=== PATIENT | female | born 1950 | race African-American/Black ===

== ENCOUNTER 2024-08-26 13:37 | Outpatient (CLI) | payer MEDICARE, SELFPAY ==
--- NOTE | ~2024-08-26 | US_ITS ---
EXAMINATION: US hip asp inj w image RT DATE: 08/26/2024 14:57 INDICATION: Osteoarthritis of the right hip TECHNIQUE: The procedure and its risks, benefits, and alternatives were discussed with the patient. Potential risks discussed included bleeding and infection. The patient understood the risks and agreed to proceed. A timeout was then performed as per protocol. The skin was prepped and draped in sterile fashion. Due to the patient's pannus, she was unable to undergo a fluoroscopy guided right hip injection secyvonne omar to absence of a sterile window from the AP position. Preparation was made for ultrasound guidance. The right hip was then reprepped and redraped in the standard sterile fashion. 1% lidocaine was used for local anesthesia. Under ultrasound guidance, a 22-gauge 3.5 cm spinal needle was advanced into the right hip and the tr ocar needle removed. The requested injectate (1% lidocaine +40 mg of Depo-Medrol) was then injected into the right hip eliane nt. The spinal needle was then removed, and a sterile dressing was applied. There were no immediate complications. FINDINGS: Fluoroscopic imaging demonstrated diffuse bony demineralization with significant sclerosis and collap se of the right femoral head. Ultrasound images demonstrate significant degenerative disease within the femoral acetabular joint sp farhan with irregularity of the femoral head. IMPRESSION: Aborted fluoroscopic guided right hip injection, secondary to body habitus. Technically successful ultrasound-guided right hip injection, as detailed above. Fluoroscopy time: 2 seconds DOSE AREA PRODUCT: 5.2 Gy-cm2 Reviewed, dictated and finalized at location A. SURVEYING MANAGER IMPRESSION: Aborted fluoroscopic guided right hip injection, secondary to body habitus. Technically successful ultrasound-guided right hip injection, as detailed above . Fluoroscopy time: 2 seconds DOSE AREA PRODUCT: 5.2 Gy-cm2
--- OUTSIDE RECORDS SUMMARY | 2024-08-26 14:28 | XMS_ITS | Data Portability ---
[facility] [address] [place] [address] Assessment Encounter Date Assessment Date Assessment LastModified by Organization Details LastModified Time 12/28/2022 12/28/2022 She continues to decline screening tests for cancer kareno Not available 12/28/2022 10:54:17 Plan of Treatment Reminders Order Date Submit Date Provider Last Modified By Organization Details Last Modified Time Details Appointments None recorded . Lab TSH, ultra-se nsitive, serum 2021 022 [facility], [facility] [facility], [address], [place], [address], 13:11:17 CBC w/ auto diff 2021 022 [facility], [address] [place] [address], [address], [place], [address], 13:11:14 CMP, serum or plasma 2021 022 [facility], [facility] [facility], [address], [place], [address], 13:11:15 urinalys is, complete 2021 022 [facility], 2022 Elizabeth Nolen, [address], [address], 13:11:15 HbA1c (hemoglo bin A1c), blood 2021 022 [facility], 20[facility] Elizabeth Nolen, [address], [place], [address], 2 13:11:17 albumin/ creatini ne, mass ratio, urine [address] [facility], 2022 Elizabeth Nolen, [address], [place], [address], 2 13:11:16 lipid panel, serum 2021 022 [facility], [address] [facility], [address], [place], [address], 2 13:11:16 noninvas christiano colorect al cancer DNA + occult blood screenin g, QL, stool 2021 022 [facility] (Cologuard Orders Only), [address], [address], [place], [address], 2 16:53:29 CBC [address] [facility], 2022 Elizabeth Nolen, [address], [place], [address], 3 19:09:35 CMP, serum or plasma [address] [facility], 2022 Elizabeth Nolen, [address], [place], [address], 3 19:09:35 TSH, ultra-se nsitive, serum 2022 023 [facility], 2022 Elizabeth Nolen, [address], [place], [address], 3 13:10:51 HbA1c (hemoglo bin A1c), blood 2022 023 [facility], 2022 Elizabeth Nolen, [address], [place], [address], 3 13:10:51 lipid panel, serum [address] [facility], 2022 Elizabeth Nolen, [address], [place], [address], 3 19:10:11 microalb umin/cre atinine, mass ratio, urine [address] [facility], 2022 Elizabeth Nolen, [address], [place], [address], 3 13:10:49 urinalys is, complete [address] [facility], 2022 Elizabeth Nolen, [address], [place], [address], 3 19:10:13 HbA1c (hemoglo bin A1c), blood 2022 024 [facility], 2022 Elizabeth Nolen, [address], [place], [address], 4 16:26:07 lipid panel, serum 2022 024 [facility], 2022 Elizabeth Nolen, [address], [place], [address], 4 16:26:07 magnesiu m, serum or plasma 2022 024 [facility], 2022 Elizabeth Nolen, [address], [place], [address], 4 16:26:07 potassiu m, serum or plasma 2022 024 [facility], 2022 Elizabeth Nolen, [address], [place], [address], 4 16:26:07 basic metaboli c 1998 panel, serum or plasma [address] [facility], 2022 Elizabeth Nolen, [address], [place], [address], 3 09:43:54 CBC 2022 023 [facility], 2022 Elizabeth Nolen, [address], [place], [address], 4 16:26:07 HbA1c (hemoglo bin A1c), blood 2022 023 [facility], 2022 Elizabeth Nolen, [address], [place], [address], 4 09:34:52 lipid panel, serum 2022 023 [facility], 2022 Elizabeth Nolen, [address], [place], [address], 4 09:34:45 unlisted lab - TSH reflex to t4f [address] [facility], 2022 Elizabeth Nolen, [address], [place], [address], 4 15:11:32 urinalys is complete , reflex culture [address] [facility], 2022 Elizabeth Nolen, [address], [place], [address], 4 15:11:34 vitamin D, 25-hydro xy, total, serum [address] [facility], 2022 Elizabeth Nolen, [address], [place], [address], 4 15:11:36 microalb umin/cre atinine, mass ratio, urine [address] [facility], 2022 Elizabeth Nolen, [address], [place], [address], 4 15:11:31 Referral diabetic ophthalm ology referral 2021 022 [facility] [employer], [address] , [place], [address], 2 11:52:07 diabetic ophthalm ology referral - HBA1C 6.5% 2022 023 rose Sue, [address] , [place], [address], 4 08:54:[address] referral 2022 023 [facility] Jermaine Colmenares DPM, [address] , [place], [address], 4 09:44:57 physical therapis t referral - R. hip pain 2022 023 [facility], [address] [facility], [place], [address], 4 09:44:58 orthoped ic surgeon referral 2023 024 [facility], [address], [address], [place], [address], 4 12:14:[address] referral - DM 2023 024 HALLIE Hunt DPM, [address], [address], [place], [address], 5 05:57:12 diabetic ophthalm ology referral - HBA1C 6.5% 2023 024 [employer], [address] , [place], [address], 4 09:09:23 Procedures None recorded . Surgeries None recorded . Imaging XR, hip, unilater al, 2 or 3 view - Pain 2022 023 [facility] (One Call Scheduling), [address] [place], [address], 3 14:32:58 CT, abdomen + pelvis, w/o contrast - Hematuri a 2022 023 [facility] (One Call Scheduling), [address] [place], [address], 3 16:37:04 XR, knee [address] (One Call Scheduling), [address] [place], [address], 5 10:17:29 LDCT, chest, for lung cancer screenin g [address] (One Call Scheduling), [address] [place], [address], 5 10:17:29 Medication Orders buspiron e 7.5 mg tablet 2021 022 [id number], [address], [place], [id number], 3 09:49:05 chlortha lidone 25 mg tablet 2021 022 [id number] [facility], [address], [place], [id number], 3 10:44:44 amlodipi ne 10 mg tablet 2021 022 [id number] [address] [place], [place] [address] #25642, [address], [place], [id number], 3 10:44:48 aspirin 81 mg tablet,d elayed release 2021 022 [facility] #99593, [address], [place], [id number], 2 10:23:57 atorvast atin 40 mg tablet 2021 022 [facility] #07205, [address], [place], [id number], 2 10:23:54 potassiu m chloride ER 20 mEq tablet,e xtended release( part/cry st) 2021 022 [facility] #49237, [address], [place], [id number], 2 10:23:52 fluticas one propiona te 50 mcg/actu ation nasal spray,jimenez spension 2022 023 [facility] #36853, [address], [place], [id number], 3 09:58:44 terbinaf ine HCl 1 % topical cream 2022 023 [facility] #20330, [address], [place], [id number], 3 09:38:41 atorvast atin 40 mg tablet 2022 023 [facility] #87780, [address], [place], [id number], 3 11:03:29 potassiu m chloride ER 20 mEq tablet,e xtended release( part/cry st) 2022 023 [facility] #75323, [address], [place], [id number], 3 11:03:10 atorvast atin 40 mg tablet 2022 023 [facility] #33950, [address], [place], [id number], 3 09:52:47 amlodipi ne 10 mg tablet 2022 023 [facility] #23357, [address], [place], [id number], 3 09:52:45 aspirin 81 mg tablet,d elayed release 2022 023 [facility] #76287, [address], [place], [id number], 3 09:52:49 chlortha lidone 25 mg tablet 2022 023 [facility] #95840, [address], [place], [id number], 3 09:52:42 potassiu m chloride ER 20 mEq tablet,e xtended release( part/cry st) 2022 023 [facility] #21728, [address], [place], [id number], 3 09:52:47 ketorola c 60 mg/2 mL intramus cular solution 2023 024 [facility] Not available 12:24:36 terbinaf ine HCl 1 % topical cream 2023 024 [facility] #52964, [address], [place], [id number], 4 10:11:29 fluconaz ole 150 mg tablet 2023 024 [facility]29946, [address], [place], [id number], 10:17:48 david m chloride ER 20 mEq tablet,e xtended release( part/cry st) 2023 [facility] #87106, [address], [place], [id number], 10:16:43 Patient TargetsNo targets recorded. Patient Instructions Encounter Date Encounter Id Patient Instructions Last Modified By Organization Details Last Modified Time 09/08/2021 [id number] deciding about using medicines to quit smoking oajao Not available 09/08/2021 10:24:36 Quitting Tobacco : Care Instructions oajao Not available 09/08/2021 10:24:36 type 2 diabetes: care instructions oajao Not available 09/08/2021 10:24:19 high blood pressure: care instructions oajao Not available 09/08/2021 10:23:41 learning about high blood pressure oajao Not available 09/08/2021 10:23:42 Labs MMG (Declined) CXR (Refused) Annual eye exam Follow up in 6 months Addendum Cologuard CBC, TSH, CMP oajao Not available 09/08/2021 11:18:07 12/28/2022 [id number] allergies: care instructions oajao Not available 12/28/2022 09:58:08 managing your allergies: care instructions oajao Not available 12/28/2022 09:58:08 A healthy lifestyle: care instructions oajao Not available 12/28/2022 10:53:14 athlete's foot: care instructions oajao Not available 12/28/2022 09:59:31 body mass index: care instructions oajao Not available 12/28/2022 10:52:48 learning about healthy weight oajao Not available 12/28/2022 10:52:48 type 2 diabetes: care instructions oajao Not available 12/28/2022 10:00:33 blood in the urine: care instructions oajao Not available 12/28/2022 09:43:[address] Ophthalmology Fluticasone Terbinafine Follow up in 3 weeks oajao Not available 12/28/2022 10:02:18 02/08/2023 [id number] type 2 diabetes: care instructions oajao Not available 02/08/2023 11:03:10 high cholesterol : care instructions oajao Not available 02/08/2023 11:03:10 Continue the current regimen Restart Potassium and Atorvastatin Labs in 5 months PT Follow up in 6 months and PRN oajao Not available 02/08/2023 11:03:56 05/30/2023 [id number] high blood pressure: care instructions oajao Not available 05/30/2023 09:50:22 learning about high blood pressure oajao Not available 05/30/2023 09:50:22 Labs Take all yo ur medications as prescribed Follow up in 6 months and PRN oajao Not available 05/30/2023 09:50:22 05/22/2024 [id number] athlete's foot: care instructions oajao Not available 05/22/2024 10:11:25 body mass index: care instructions oajao Not available 05/22/2024 10:21:42 learning about healthy weight oajao Not available 05/22/2024 10:21:42 A healthy lifestyle: care instructions oajao Not available 05/22/2024 10:21:42 type 2 diabetes: care instructions oajao Not available 05/22/2024 10:13:12 Labs (Old and ne w orders) Podiatry MMG as previously ordered LDCT Stop smoking Terbinafine cream Fluconazole weekly Take Potassium as ordered Follow up in 6 weeks Addendum Ophthalmology oajao Not available 05/22/2024 14:00:55 Detailed visit oajao Not available 1 14:00:12 Reason for Referral Diabetic Ophthalmology Refer ral for Uncontrolled type 2 diabetes mellitus Referring Physician: Joni Sewell, Internal Medicine, Encounter Date: 09/08/2021 Diabetic Ophthalmology Refer ral for Type 2 diabetes mellitus without complication HBA1C 6.5% HBA1C 6.5% Referring Physician: Joni Sewell, Internal Medicine, Encounter Date: 12/28/2022 [employer] Education [employer]inator Referral for Type 2 diabetes mellitus without complication Referring Physician: Joni Sewell Internal Medicine, Encounter Date: 12/28/2022 Physical Therapist Referral for Pain in right hip joint R. hip pain Referring Physician: Joni Sewell Internal Medicine, Encounter Date: 02/08/2023 [employer] Education Coordinator Referral for Type 2 diabetes mellitus without complication DM DM Referring Physician: Joni Sewell Internal Medicine, Encounter Date: 05/22/2024 Orthopedic Surgeon Referral for Pain in right hip joint OA of the right hip and right knee pain Referring Physician: Joni Sewell Internal Medicine, Encounter Date: 05/22/2024 Diabetic Ophthalmology Refer ral for Type 2 diabetes mellitus without complication HBA1C 6.5% HBA1C 6.5% Referring Physician: Joni Sewell Internal Medicine, Encounter Date: 05/22/2024 Results Created Date Observation Date Name Description Value Unit Range Abnormal Flag Note LastModifiedBy Organization Detail LastModifiedTime 09/08/1909/08/2022 COLOG UARD cologuard result CANCEL LED - ORDER D not applic able Not Available [facility] (Cologuard Orders Only) [address], [place], [address], 09/08/2022 08:03:17 09/11/19 22 09/12/2021 CBC WITH DIFFE RENTI AL/PL ATELE T WBC 7.5 x10e3 /uL 3.4-10 .8 Not Available [facility] ([facility]) [address] [facility], [place], [address], 09/12/2021 13:11:14 09/11/19 22 09/12/2021 CBC WITH DIFFE RENTI AL/PL ATELE T RBC 5.03 x10e6 /uL 3.77-5 .28 Not Available [facility] ([facility]) [address] [facility], [place], [address], 09/12/2021 13:11:14 02/14/20 22 09/12/2021 CBC WITH DIFFE RENTI AL/PL ATELE T hemoglobin 14.1 g/dL 11.1-1 5.9 Not Available [facility] ([facility]) [address] [facility], [place], [address], 09/12/2021 13:11:14 09/11/19 22 09/12/2021 CBC WITH DIFFE RENTI AL/PL ATELE T hematocrit 42.7 % 34.0-4 6.6 Not Available [facility] ([facility]) [address] [facility], [place], [address], 09/12/2021 13:11:14 09/11/19 22 09/12/2021 CBC WITH DIFFE RENTI AL/PL ATELE T MCV 85 fL 79-97 Not Available [facility] ([facility]) [address] [facility], [place], [address], 09/12/2021 13:11:14 09/11/19 22 09/12/2021 CBC WITH DIFFE RENTI AL/PL ATELE T MCH 28.0 pg 26.6-3 3.0 Not Available [facility] ([facility]) [address] [place], [address], 09/12/2021 13:11:14 09/11/19 22 09/12/2021 CBC WITH DIFFE RENTI AL/PL ATELE T MCHC 33.0 g/dL 31.5-3 5.7 Not Available [facility] ([facility]) [address] [place], [address], 09/12/2021 13:11:14 09/11/19 22 09/12/2021 CBC WITH DIFFE RENTI AL/PL ATELE T RDW 13.9 % 11.7-1 5.4 Not Available [facility] ([facility]) [address] [place], [address], 09/12/2021 13:11:14 09/11/19 22 09/12/2021 CBC WITH DIFFE RENTI AL/PL ATELE T platelets 214 x10e3 /uL 150-45 0 Not Available [facility] ([facility]) [address] [facility], [place], [address], 09/12/2021 13:11:14 09/11/19 22 09/12/2021 CBC WITH DIFFE RENTI AL/PL ATELE T neutrophils 46 % not estab. Not Available [facility] ([facility]) [address] [facility], [place], [address], 09/12/2021 13:11:14 09/11/19 22 09/12/2021 CBC WITH DIFFE RENTI AL/PL ATELE T lymphs 45 % not estab. Not Available [facility] ([facility]) [address] [facility], [place], [address], 09/12/2021 13:11:14 09/11/19 22 09/12/2021 CBC WITH DIFFE RENTI AL/PL ATELE T monocytes 8 % not estab. Not Available [facility] ([facility]) [address] [facility], [place], [address], 09/12/2021 13:11:14 09/11/19 22 09/12/2021 CBC WITH DIFFE RENTI AL/PL ATELE T eos 1 % not estab. Not Available [facility] ([facility]) [address] [facility], [place], [address], 09/12/2021 13:11:14 09/11/19 22 09/12/2021 CBC WITH DIFFE RENTI AL/PL ATELE T basos 0 % not estab. Not Available [facility] ([facility]) [address] [facility], [place], [address], 09/12/2021 13:11:14 09/11/19 22 09/12/2021 CBC WITH DIFFE RENTI AL/PL ATELE T immature cells INSPECTING AND TESTING LEAD HAND Not Available [facility] ([facility]) [address] [facility], [place], [address], 09/12/2021 13:11:14 09/11/19 22 09/12/2021 CBC WITH DIFFE RENTI AL/PL ATELE T neutrophils (absolute) 3.5 x10e3 /uL 1.4-7. 0 Not Available [facility] ([facility]) [address] [facility], [place], [address], 09/12/2021 13:11:14 09/11/19 22 09/12/2021 CBC WITH DIFFE RENTI AL/PL ATELE T lymphs (absolute) 3.3 x10e3 /uL 0.7-3. 1 above high normal Not Available [facility] ([facility]) [address] [facility], [place], [address], 09/12/2021 13:11:14 09/11/19 22 09/12/2021 CBC WITH DIFFE RENTI AL/PL ATELE T monocytes(ab solute) 0.6 x10e3 /uL 0.1-0. 9 Not Available [facility] ([facility]) [address] [facility], [place], [address], 09/12/2021 13:11:14 09/11/19 22 09/12/2021 CBC WITH DIFFE RENTI AL/PL ATELE T eos (absolute) 0.0 x10e3 /uL 0.0-0. 4 Not Available [facility] ([facility]) [address] [place], [address], 09/12/2021 13:11:14 09/11/19 22 09/12/2021 CBC WITH DIFFE RENTI AL/PL ATELE T baso (absolute) 0.0 x10e3 /uL 0.0-0. 2 Not Available [facility] ([facility]) [address] [place], [address], 09/12/2021 13:11:14 09/11/19 22 09/12/2021 CBC WITH DIFFE RENTI AL/PL ATELE T immature granulocytes 0 % not estab. Not Available [facility] ([facility]) [address] [facility], [place], [address], 09/12/2021 13:11:14 09/11/19 22 09/12/2021 CBC WITH DIFFE RENTI AL/PL ATELE T immature grans (abs) 0.0 x10e3 /uL 0.0-0. 1 Not Available [facility] ([facility]) [address] [facility], [place], [address], 09/12/2021 13:11:14 09/11/19 22 09/12/2021 CBC WITH DIFFE RENTI AL/PL ATELE T NRBC INSPECTING AND TESTING LEAD HAND Not Available [facility] ([facility]) [address] [facility], [place], [address], 09/12/2021 13:11:14 09/11/19 22 09/12/2021 CBC WITH DIFFE RENTI AL/PL ATELE T hematology comments: INSPECTING AND TESTING LEAD HAND Not Available [facility] ([facility]) [address] [facility], [place], [address], 09/12/2021 13:11:14 09/11/19 22 09/12/2021 COMP. METAB OLIC PANEL (14) glucose 133 mg/dL 65-99 above high normal Not Available [facility] ([facility]) [address] [facility], [place], [address], 09/12/2021 13:11:15 09/11/19 22 09/12/2021 COMP. METAB OLIC PANEL (14) BUN 14 mg/dL 8-27 Not Available [facility] ([facility]) [address] [place], [address], 09/12/2021 13:11:15 09/11/19 22 09/12/2021 COMP. METAB OLIC PANEL (14) creatinine 0.73 mg/dL 0.57-1 .00 Not Available [facility] ([facility]) [address], [place], [address], 09/12/2021 13:11:15 09/11/19 22 09/12/2021 COMP. METAB OLIC PANEL (14) eGFR if nonafricn AM 83 mL/mi n/1.7 3 >59 Not Available [facility] ([facility]) [address], [place], [address], 09/12/2021 13:11:15 09/11/19 22 09/12/2021 COMP. METAB OLIC PANEL (14) eGFR if africn AM 96 mL/mi n/1.7 3 >59 In accor dance with recom menda tions from the NKF-A SN Task force , [facility] is in the proce ss of updat ing its eGFR calcu latio n to the 2020 CKD-E PI creat inine equat ion that estim ates kidne y funct ion witho ut a race varia ble. Not Available [facility] ([facility]) [address] [facility], [place], [address], 09/12/2021 13:11:15 09/11/19 22 09/12/2021 COMP. METAB OLIC PANEL (14) BUN/creatini ne ratio 19 12-28 Not Available [facility] ([facility]) [address] [facility], [place], [address], 09/12/2021 13:11:15 09/11/19 22 09/12/2021 COMP. METAB OLIC PANEL (14) sodium 142 mmol/ L 134-14 4 Not Available [facility] ([facility]) [address] [facility], [place], [address], 09/12/2021 13:11:15 09/11/19 22 09/12/2021 COMP. METAB OLIC PANEL (14) potassium 3.5 mmol/ L 3.5-5. 2 Not Available [facility] ([facility]) [address] [facility], [place], [address], 09/12/2021 13:11:15 09/11/19 22 09/12/2021 COMP. METAB OLIC PANEL (14) chloride 102 mmol/ L 96-106 Not Available [facility] ([facility]) [address] [facility], [place], [address], 09/12/2021 13:11:15 09/11/19 22 09/12/2021 COMP. METAB OLIC PANEL (14) carbon dioxide, total 25 mmol/ L 20-29 Not Available [facility] ([facility]) [address], [place], [address], 09/12/2021 13:11:15 09/11/19 22 09/12/2021 COMP. METAB OLIC PANEL (14) calcium 9.7 mg/dL 8.7-10 .3 Not Available [facility] ([facility]) [address] [facility], [place], [address], 09/12/2021 13:11:15 09/11/19 22 09/12/2021 COMP. METAB OLIC PANEL (14) protein, total 7.2 g/dL 6.0-8. 5 Not Available [facility] ([facility]) [address] [facility], [place], [address], 09/12/2021 13:11:15 09/11/19 22 09/12/2021 COMP. METAB OLIC PANEL (14) albumin 4.3 g/dL 3.7-4. 7 Not Available [facility] ([facility]) [address] [place], [address], 09/12/2021 13:11:15 09/11/19 22 09/12/2021 COMP. METAB OLIC PANEL (14) globulin, total 2.9 g/dL 1.5-4. 5 Not Available [facility] ([facility]) [address] [place], [address], 09/12/2021 13:11:15 09/11/19 22 09/12/2021 COMP. METAB OLIC PANEL (14) A/G ratio 1.5 1.2-2. 2 Not Available [facility] ([facility]) [address] [place], [address], 09/12/2021 13:11:15 09/11/19 22 09/12/2021 COMP. METAB OLIC PANEL (14) bilirubin, total 0.5 mg/dL 0.0-1. 2 Not Available [facility] ([facility]) [address] [place], [address], 09/12/2021 13:11:15 09/11/19 22 09/12/2021 COMP. METAB OLIC PANEL (14) alkaline phosphatase 74 IU/L 44-121 Not Available [facility] ([facility]) [address] [facility], [place], [address], 09/12/2021 13:11:15 09/11/19 22 09/12/2021 COMP. METAB OLIC PANEL (14) AST (SGOT) 13 IU/L 0-40 Not Available [facility] ([facility]) [address] [place], [address], 09/12/2021 13:11:15 09/11/19 22 09/12/2021 COMP. METAB OLIC PANEL (14) ALT (SGPT) 11 IU/L 0-32 Not Available [facility] ([facility]) [address] [facility], [place], [address], 09/12/2021 13:11:15 09/11/19 22 09/12/2021 URINA LYSIS , COMPL ETE specific gravity 1.013 1.005- 1.030 Not Available [facility] ([facility]) [address] [facility], [place], [address], 09/18/2021 15:09:37 09/11/19 22 09/12/2021 URINA LYSIS , COMPL ETE pH 5.5 5.0-7. 5 Not Available [facility] ([facility]) [address] [facility], [place], [address], 09/18/2021 15:09:37 09/11/19 22 09/12/2021 URINA LYSIS , COMPL ETE urine-color YELLOW yellow Not Available [facility] ([facility]) [address] [facility], [place], [address], 09/18/2021 15:09:37 09/11/19 22 09/12/2021 URINA LYSIS , COMPL ETE appearance CLOUDY clear abnormal Not Available [facility] ([facility]) [address] [place], [address], 09/18/2021 15:09:37 09/11/19 22 09/12/2021 URINA LYSIS , COMPL ETE WBC esterase 2+ negati ve abnormal Not Available [facility] ([facility]) [address] [place], [address], 09/18/2021 15:09:37 09/11/19 22 09/12/2021 URINA LYSIS , COMPL ETE protein NEGATI VE negati ve/tra ce Not Available [facility] ([facility]) [address] [facility], [place], [address], 09/18/2021 15:09:37 09/11/19 22 09/12/2021 URINA LYSIS , COMPL ETE glucose NEGATI VE negati ve Not Available [facility] ([facility]) [address] [place], [address], 09/18/2021 15:09:37 09/11/19 22 09/12/2021 URINA LYSIS , COMPL ETE ketones NEGATI VE negati ve Not Available [facility] ([facility]) [address] [place], [address], 09/18/2021 15:09:37 09/11/19 22 09/12/2021 URINA LYSIS , COMPL ETE occult blood TRACE negati ve abnormal Not Available [facility] ([facility]) [address] [place], [address], 09/18/2021 15:09:37 09/11/19 22 09/12/2021 URINA LYSIS , COMPL ETE bilirubin NEGATI VE negati ve Not Available [facility] ([facility]) [address] [place], [address], 09/18/2021 15:09:37 09/11/19 22 09/12/2021 URINA LYSIS , COMPL ETE urobilinogen ,semi-qn 0.2 mg/dL 0.2-1. 0 Not Available [facility] ([facility]) [address] [place], [address], 09/18/2021 15:09:37 09/11/19 22 09/12/2021 URINA LYSIS , COMPL ETE nitrite, urine NEGATI VE negati ve Not Available [facility] ([facility]) [address] [place], [address], 09/18/2021 15:09:37 09/11/19 22 09/12/2021 URINA LYSIS , COMPL ETE microscopic examination SEE BELOW: Micro scopi c was indic ated and was perfo rmed. Not Available [facility] ([facility]) [address] [place], [address], 09/18/2021 15:09:37 09/11/19 22 09/12/2021 URINA LYSIS , COMPL ETE WBC 6-10 /hpf 0 - 5 abnormal Not Available [facility] ([facility]) [address] [place], [address], 09/18/2021 15:09:37 09/11/19 22 09/12/2021 URINA LYSIS , COMPL ETE RBC 0-2 /hpf 0 - 2 Not Available [facility] ([facility]) [address] [place], [address], 09/18/2021 15:09:37 09/11/19 22 09/12/2021 URINA LYSIS , COMPL ETE epithelial cells (non renal) >10 /hpf 0 - 10 abnormal Not Available [facility] ([facility]) [address] [facility], [place], [address], 09/18/2021 15:09:37 09/11/19 22 09/12/2021 URINA LYSIS , COMPL ETE casts NONE SEEN /lpf none seen Not Available [facility] ([facility]) [address] [facility], [place], [address], 09/18/2021 15:09:37 09/11/19 22 09/12/2021 URINA LYSIS , COMPL ETE bacteria NONE SEEN none seen/f ew Not Available [facility] ([facility]) [address] [facility], [place], [address], 09/18/2021 15:09:37 09/11/19 22 09/12/2021 LIPID PANEL cholesterol, total 206 mg/dL 100-19 9 above high normal Not Available [facility] ([facility]) [address] [facility], [place], [address], 09/18/2021 15:09:38 09/11/19 22 09/12/2021 LIPID PANEL triglyceride s 107 mg/dL 0-149 Not Available [facility] ([facility]) [address] [place], [address], 09/18/2021 15:09:38 09/11/19 22 09/12/2021 LIPID PANEL HDL cholesterol 71 mg/dL >39 Not Available [facility] ([facility]) [address] [place], [address], 09/18/2021 15:09:38 09/11/19 22 09/18/2021 LIPID PANEL VLDL cholesterol jimmy 19 mg/dL 5-40 Not Available [facility] ([facility]) [address] [facility], [place], [address], 09/18/2021 15:09:38 09/11/19 22 09/18/2021 LIPID PANEL LDL chol calc ([facility]) 116 mg/dL 0-99 above high normal Not Available [facility] ([facility]) [address] [facility], [place], [address], 09/18/2021 15:09:38 09/11/19 22 09/18/2021 LIPID PANEL comment: INSPECTING AND TESTING LEAD HAND Not Available [facility] ([facility]) [address] [place], [address], 09/18/2021 15:09:38 09/11/19 22 09/12/2021 ALBUM IN/CR EATIN INE RATIO ,URIN E creatinine, urine 62.8 mg/dL not estab. Not Available [facility] ([facility]) [address] [place], [address], 09/18/2021 15:09:38 09/11/19 22 09/12/2021 ALBUM IN/CR EATIN INE RATIO ,URIN E albumin, urine 17.6 ug/mL not estab. Not Available [facility] ([facility]) [address] [place], [address], 09/18/2021 15:09:38 09/11/19 22 09/18/2021 ALBUM IN/CR EATIN INE RATIO ,URIN E alb/creat ratio 28 mg/g_ creat 0-29 Cecilia l: 0 - 29 Moder ately incre ased: 30 - 300 Sever sebas incre ased: >300 Not Available [facility] ([facility]) [address] [place], [address], 09/18/2021 15:09:38 09/11/19 22 09/12/2021 HEMOG LOBIN A1C hemoglobin A1C 6.5 % 4.8-5. 6 above high normal Predi abete s: 5.7 - 6.4 Diabe scott: >6.4 Glyce jessy contr ol for adult s with diabe scott: <7.0 Not Available [facility] ([facility]) [address] [place], [address], 09/12/2021 13:11:17 09/11/19 22 09/12/2021 TSH TSH 0.639 uIU/m L 0.450- 4.500 Not Available [facility] ([facility]) [address] [facility], [place], [address], 09/12/2021 13:11:17 09/11/19 22 09/12/2021 DIABE SCOTT PATIE NT EDUCA TION pdf . Not Available [facility] ([facility]) [address] [facility], [place], [address], 09/12/2021 13:11:18 09/11/19 22 09/12/2021 COMP. METAB OLIC PANEL (14) glucose 133 mg/dL 65-99 above high normal Not Available [facility] ([facility]) [address] [facility], [place], [address], 09/18/2021 15:09:37 09/11/19 22 09/12/2021 COMP. METAB OLIC PANEL (14) BUN 14 mg/dL 8-27 Not Available [facility] ([facility]) [address] [place], [address], 09/18/2021 15:09:37 09/11/19 22 09/12/2021 COMP. METAB OLIC PANEL (14) creatinine 0.73 mg/dL 0.57-1 .00 Eff ectiv e Febru debra 2021 [facility] will begin repor ting the 2020 CKD-E PI creat inine equat ion that estim ates kidne y funct ion witho ut a race varia ble. Not Available [facility] ([facility]) [address] [place], [address], 09/18/2021 15:09:37 09/11/19 22 09/12/2021 COMP. METAB OLIC PANEL (14) sodium 142 mmol/ L 134-14 4 Not Available [facility] ([facility]) [address] [place], [address], 09/18/2021 15:09:37 09/11/19 22 09/12/2021 COMP. METAB OLIC PANEL (14) potassium 3.5 mmol/ L 3.5-5. 2 Not Available [facility] ([facility]) [address] [place], [address], 09/18/2021 15:09:37 09/11/19 22 09/12/2021 COMP. METAB OLIC PANEL (14) chloride 102 mmol/ L 96-106 Not Available [facility] ([facility]) [address] [place], [address], 09/18/2021 15:09:37 09/11/19 22 09/12/2021 COMP. METAB OLIC PANEL (14) carbon dioxide, total 25 mmol/ L 20-29 Not Available [facility] ([facility]) [address] [place], [address], 09/18/2021 15:09:37 09/11/19 22 09/12/2021 COMP. METAB OLIC PANEL (14) calcium 9.7 mg/dL 8.7-10 .3 Not Available [facility] ([facility]) [address] [place], [address], 09/18/2021 15:09:37 09/11/19 22 09/12/2021 COMP. METAB OLIC PANEL (14) protein, total 7.2 g/dL 6.0-8. 5 Not Available [facility] ([facility]) [address] [place], [address], 09/18/2021 15:09:37 09/11/19 22 09/12/2021 COMP. METAB OLIC PANEL (14) albumin 4.3 g/dL 3.7-4. 7 Not Available [facility] ([facility]) [address] [place], [address], 09/18/2021 15:09:37 09/11/19 22 09/12/2021 COMP. METAB OLIC PANEL (14) bilirubin, total 0.5 mg/dL 0.0-1. 2 Not Available [facility] ([facility]) [address] [place], [address], 09/18/2021 15:09:37 09/11/19 22 09/12/2021 COMP. METAB OLIC PANEL (14) alkaline phosphatase 74 IU/L 44-121 Not Available [facility] ([facility]) [address] [place], [address], 09/18/2021 15:09:37 09/11/19 22 09/12/2021 COMP. METAB OLIC PANEL (14) AST (SGOT) 13 IU/L 0-40 Not Available [facility] ([facility]) [address] [place], [address], 09/18/2021 15:09:37 09/11/19 22 09/12/2021 COMP. METAB OLIC PANEL (14) ALT (SGPT) 11 IU/L 0-32 Not Available [facility] ([facility]) [address] [place], [address], 09/18/2021 15:09:37 09/11/19 22 09/18/2021 COMP. METAB OLIC PANEL (14) eGFR if nonafricn AM 83 mL/mi n/1.7 3 >59 Not Available [facility] ([facility]) [address] [place], [address], 09/18/2021 15:09:37 09/11/19 22 09/18/2021 COMP. METAB OLIC PANEL (14) eGFR if africn AM 96 mL/mi n/1.7 3 >59 In accor dance with recom menda tipatricia from the NKF-A SN Task force , [facility] is in the proce ss of updat ing its eGFR calcu latio n to the 2020 CKD-E PI creat inine equat ion that estim ates kidne y funct ion witho ut a race varia ble. Not Available [facility] ([facility]) [address] [facility], [place], [address], 09/18/2021 15:09:37 09/11/19 22 09/18/2021 COMP. METAB OLIC PANEL (14) BUN/creatini ne ratio 07-25 Not Available [facility] ([facility]) [address] [facility], [place], [address], 09/18/2021 15:09:37 09/11/19 22 09/18/2021 COMP. METAB OLIC PANEL (14) globulin, total 2.9 g/dL 1.5-4. 5 Not Available [facility] ([facility]) [address] [place], [address], 09/18/2021 15:09:37 09/11/19 22 09/18/2021 COMP. METAB OLIC PANEL (14) A/G ratio 1.5 1.2-2. 2 Not Available [facility] ([facility]) [address] [place], [address], 09/18/2021 15:09:37 02/06/20 23 02/05/2023 COMP. METAB OLIC PANEL (14) glucose 117 mg/dL 65-99 above high normal ANION GP 16.0 mmol/ L N OSMOL 285.0 mOsM/ L N REFER ENCE RANGE : 275.0 -301. 0 Not Available [facility] [address] [place], [address], 02/05/2023 19:09:35 02/06/20 23 02/05/2023 COMP. METAB OLIC PANEL (14) BUN 10 mg/dL 8-26 Not Available [facility] Department [address] [place], [address], 02/05/2023 19:09:35 02/06/20 23 02/05/2023 COMP. METAB OLIC PANEL (14) creatinine 0.66 mg/dL 0.50-1 .40 Not Available [facility] Department [address] [place], [address], 02/05/2023 19:09:35 02/06/20 23 02/05/2023 COMP. METAB OLIC PANEL (14) eGFR 93 mL/mi n/1.7 3 >=60 Not Available [facility] Department [address] [place], [address], 02/05/2023 19:09:35 02/06/20 23 02/05/2023 COMP. METAB OLIC PANEL (14) BUN/creatini ne ratio 15.8 Not Available [facility] Department [address] [place], [address], 02/05/2023 19:09:35 02/06/20 23 02/05/2023 COMP. METAB OLIC PANEL (14) sodium 143.0 mmol/ L 136.0- 144.0 Not Available [facility] Department [address] [place], [address], 02/05/2023 19:09:35 02/06/20 23 02/05/2023 COMP. METAB OLIC PANEL (14) potassium 3.4 mmol/ L 3.5-5. 3 below low normal Not Available [facility] Department [address] [place], [address], 02/05/2023 19:09:35 02/06/20 23 02/05/2023 COMP. METAB OLIC PANEL (14) chloride 103 mmol/ l 101-11 1 Not Available [facility] Department [address] [place], [address], 02/05/2023 19:09:35 02/06/20 23 02/05/2023 COMP. METAB OLIC PANEL (14) carbon dioxide, total 27.3 mmol/ L 21.0-3 2.0 Not Available [facility] Department [address] [place], [address], 02/05/2023 19:09:35 02/06/20 23 02/05/2023 COMP. METAB OLIC PANEL (14) calcium 9.6 mg/dL 8.2-10 .0 Not Available [facility] Department [address] [place] [address], [address], 02/05/2023 19:09:35 02/06/20 23 02/05/2023 COMP. METAB OLIC PANEL (14) protein, total 6.9 g/dL 6.7-8. 2 Not Available [facility] Department [address] [place] [address], [address], 02/05/2023 19:09:35 02/06/20 23 02/05/2023 COMP. METAB OLIC PANEL (14) albumin 4.2 g/dL 3.5-5. 5 Not Available [facility] Department [address] [place], [address], 02/05/2023 19:09:35 02/06/20 23 02/05/2023 COMP. METAB OLIC PANEL (14) globulin, total 2.7 g/dL 1.5-4. 5 Not Available [facility] Department [address] [place], [address], 02/05/2023 19:09:35 02/06/20 23 02/05/2023 COMP. METAB OLIC PANEL (14) A/G ratio 1.6 Not Available [facility] Department [address] [place], [address], 02/05/2023 19:09:35 02/06/20 23 02/05/2023 COMP. METAB OLIC PANEL (14) bilirubin, total 0.3 mg/dL 0.0-1. 2 Not Available [facility] Department [address] [place], [address], 02/05/2023 19:09:35 02/06/20 23 02/05/2023 COMP. METAB OLIC PANEL (14) alkaline phosphatase 71.7 IU/L 42.0-1 21.0 Not Available [facility] Department [address] [place], [address], 02/05/2023 19:09:35 02/06/20 23 02/05/2023 COMP. METAB OLIC PANEL (14) AST (SGOT) 16.5 U/L 10.0-4 2.0 Not Available [facility] Department [address] [place], [address], 02/05/2023 19:09:35 02/06/20 23 02/05/2023 COMP. METAB OLIC PANEL (14) ALT (SGPT) 12.6 U/L 10.0-6 0.0 Not Available [facility] Department [address] [place], [address], 02/05/2023 19:09:35 02/06/20 23 02/05/2023 CBC, PLATE LET, NO DIFFE RENTI AL WBC 7.8 K/uL 3.4-10 .8 Not Available [facility] Department [address] [place], [address], 02/05/2023 19:09:35 02/06/20 23 02/05/2023 CBC, PLATE LET, NO DIFFE RENTI AL RBC 4.9 M/uL 4.2-5. 4 Not Available [facility] Department [address] [place], [address], 02/05/2023 19:09:35 02/06/20 23 02/05/2023 CBC, PLATE LET, NO DIFFE RENTI AL hemoglobin 13.0 g/dL 11.5-1 5.5 Not Available [facility] Department [address] [place], [address], 02/05/2023 19:09:35 02/06/2002/05/2023 CBC, PLATE LET, NO DIFFE RENTI AL hematocrit 41.4 % 36.0-4 8.0 Not Available [facility] Department [address] [place], [address], 02/05/2023 19:09:35 02/06/2002/05/2023 CBC, PLATE LET, NO DIFFE RENTI AL MCV 85 fL 80-95 Not Available [facility] Department [address] [place], [address], 02/05/2023 19:09:35 02/06/2002/05/2023 CBC, PLATE LET, NO DIFFE RENTI AL MCH 27 pg 27-32 Not Available [facility] Department [address] [place], [address], 02/05/2023 19:09:35 02/06/2002/05/2023 CBC, PLATE LET, NO DIFFE RENTI AL MCHC 31 g/dL 32-36 below low normal Not Available [facility] Department [address] [place], [address], 02/05/2023 19:09:35 02/06/2002/05/2023 CBC, PLATE LET, NO DIFFE RENTI AL RDW 15.8 % 11.5-1 4.5 above high normal Not Available [facility] Department [address] [place], [address], 02/05/2023 19:09:35 02/06/2002/05/2023 CBC, PLATE LET, NO DIFFE RENTI AL platelets 214 K/uL 155-37 9 MPV 11.5 FL 8.9-1 2.7 N Not Available [facility] Department [address] [place], [address], 02/05/2023 19:09:35 02/06/2002/05/2023 CBC, PLATE LET, NO DIFFE RENTI AL NRBC 0 % Not Available [facility] Department [address], [place], [address], 02/05/2023 19:09:35 02/06/20 23 02/05/2023 LIPID PANEL cholesterol, total 204.2 mg/dL 140.0- 200.0 above high normal Not Available [facility] [address] [facility] [address], [place], [address], 02/05/2023 19:10:11 02/06/20 23 02/05/2023 LIPID PANEL triglyceride s 115 mg/dL <=150 Not Available [facility] [address] [facility] [address], [place], [address], 02/05/2023 19:10:11 02/06/20 23 02/05/2023 LIPID PANEL HDL cholesterol 61.7 mg/dL 40.0-1 00.0 Not Available [facility] [address] [facility] [address], [place], [address], 02/05/2023 19:10:11 02/06/20 23 02/05/2023 LIPID PANEL VLDL cholesterol jimmy 23.00 mg/dL 5.00-4 0.00 Not Available [facility] [address] [facility] [address], [place], [address], 02/05/2023 19:10:11 02/06/20 23 02/05/2023 LIPID PANEL LDL chol calc ([facility]) 122.1 mg/dL 0.0-99 .0 above high normal Not Available [facility] [address], [place], [address], 02/05/2023 19:10:11 02/06/20 23 02/05/2023 URINA LYSIS , COMPL ETE specific gravity 1.015 1.001- 1.035 Not Available [facility] [address] [facility] [address], [place], [address], 02/05/2023 19:10:13 02/06/20 23 02/05/2023 URINA LYSIS , COMPL ETE pH 6.0 5.0-7. 0 Not Available [facility] [address] [facility] [address], [place], [address], 02/05/2023 19:10:13 02/06/20 23 02/05/2023 URINA LYSIS , COMPL ETE urine-color YELLOW yellow Not Available [facility] [address] [facility] [address], [place], [address], 02/05/2023 19:10:13 02/06/20 23 02/05/2023 URINA LYSIS , COMPL ETE appearance CLEAR Not Available [facility] [address] [facility] [address], [place], [address], 02/05/2023 19:10:13 02/06/20 23 02/05/2023 URINA LYSIS , COMPL ETE WBC esterase SMALL abnormal Not Available [facility] [address] [facility] [address], [place], [address], 02/05/2023 19:10:13 02/06/20 23 02/05/2023 URINA LYSIS , COMPL ETE protein COMMEN T NEGAT CHRISTIANO Not Available [facility] [address] [facility] [address], [place], [address], 02/05/2023 19:10:13 02/06/20 23 02/05/2023 URINA LYSIS , COMPL ETE glucose COMMEN T NEGAT CHRISTIANO Not Available [facility] [address] [facility] [address], [place], [address], 02/05/2023 19:10:13 02/06/20 23 02/05/2023 URINA LYSIS , COMPL ETE ketones COMMEN T NEGAT CHRISTIANO Not Available [facility] [address] [facility] [address], [place], [address], 02/05/2023 19:10:13 02/06/20 23 02/05/2023 URINA LYSIS , COMPL ETE occult blood SEE BELOW: regine/u L negati ve abnormal TRACE -INTA CT Not Available [facility] [address] [facility] [address], [place], [address], 02/05/2023 19:10:13 02/06/20 23 02/05/2023 URINA LYSIS , COMPL ETE bilirubin COMMEN T negati ve NEGAT CHRISTIANO Not Available [facility] [address] [facility] [address], [place], [address], 02/05/2023 19:10:13 02/06/20 23 02/05/2023 URINA LYSIS , COMPL ETE urobilinogen ,semi-qn 0.2 eu/dL <=1.0 Not Available [facility] [address] [facility] [address], [place], [address], 02/05/2023 19:10:13 02/06/20 23 02/05/2023 URINA LYSIS , COMPL ETE nitrite, urine COMMEN T negati ve NEGAT CHRITSIANO Not Available [facility] [address] [facility] [address], [place], [address], 02/05/2023 19:10:13 02/06/20 23 02/06/2023 ALBUM IN/CR EAT RATIO , RANDO M UR creatinine, urine 71.6 mg/dL notest ab. Not Available [facility] [address] [facility] [address], [place], [address], 02/06/2023 13:10:49 02/06/20 23 02/06/2023 ALBUM IN/CR EAT RATIO , RANDO M UR albumin, urine 7.4 ug/mL notest ab. Not Available [facility] [address] [facility] [address], [place], [address], 02/06/2023 13:10:49 02/06/20 23 02/06/2023 ALBUM IN/CR EAT RATIO , RANDO M UR alb/creat ratio 10 mg/g_ creat 0-29 Cecilia l: 0 - 29 Moder ately incre ased: 30 - 300 Sever sebas incre ased: >300 Not Available [facility] [address] [facility] [address], [place], [address], 02/06/2023 13:10:49 02/06/20 23 02/06/2023 HEMOG LOBIN A1C hemoglobin A1C 6.5 % 4.8-5. 6 above high normal Predi abete s: 5.7 - 6.4 Diabe scott: >6.4 Glyce jessy contr ol for adult s with diabe scott: <7.0 Not Available [facility] [address] [facility] [address], [place], [address], 02/06/2023 13:10:50 02/06/20 23 02/06/2023 TSH TSH 0.752 uIU/m L 0.450- 4.500 Not Available [facility] [address] [facility] [address], [place], [address], 02/06/2023 13:10:51 02/06/20 23 02/06/2023 DIABE SCOTT PATIE NT EDUCA TION pdf NOT APPLIC ABLE Not Available [facility] [address] [facility] [address], [place], [address], 02/06/2023 13:10:50 02/06/20 23 02/06/2023 DIABE SCOTT PATIE NT EDUCA TION pdf .* Not Available [facility] [address] [facility] [address], [place], [address], 02/06/2023 13:10:44 02/06/20 23 02/05/2023 MICRO SCOPI C EXAMI NATIO N WBC 3-5 Not Available [facility] [address] [facility] [address], [place], [address], 02/06/2023 13:10:44 02/06/20 23 02/05/2023 MICRO SCOPI C EXAMI NATIO N RBC 0-2 Not Available [facility] [address] [facility] [address], [place], [address], 02/06/2023 13:10:44 02/06/20 23 02/05/2023 MICRO SCOPI C EXAMI NATIO N epithelial cells (non renal) COMMEN T OCCAS IONAL Not Available [facility] [address], [place], [address], 02/06/2023 13:10:44 02/06/20 23 02/05/2023 MICRO SCOPI C EXAMI NATIO N bacteria TRACE abnormal Not Available [facility] [address], [place], [address], 02/06/2023 13:10:44 02/06/20 23 02/05/2023 MICRO SCOPI C EXAMI NATIO N trichomonas SEE BELOW: absent abnormal PRESE NT Not Available [facility] [address], [place], [address], 02/06/2023 13:10:44 02/06/20 23 02/05/2023 DIABE SCOTT PATIE NT EDUCA TION pdf . Not Available [facility] [address], [place], [address], 02/05/2023 19:10:12 02/06/20 23 02/05/2023 MICRO SCOPI C EXAMI NATIO N WBC 3-5 Not Available [facility] [address], [place], [address], 02/05/2023 19:10:12 02/06/20 23 02/05/2023 MICRO SCOPI C EXAMI NATIO N RBC 0-2 Not Available [facility] [address], [place], [address], 02/05/2023 19:10:12 02/06/20 23 02/05/2023 MICRO SCOPI C EXAMI NATIO N epithelial cells (non renal) COMMEN T OCCAS IONAL Not Available [facility] [address], [place], [address], 02/05/2023 19:10:12 07/1102/05/2023 MICRO SCOPI C EXAMI NATIO N bacteria TRACE abnormal Not Available [facility] [address], [place], [address], 02/05/2023 19:10:12 02/06/20 23 02/05/2023 MICRO SCOPI C EXAMI NATIO N trichomonas SEE BELOW: absent abnormal PRESE NT Not Available [facility] [place] [facility] [address], [place], [address], 02/05/2023 19:10:12 05/22/20 24 05/23/2024 ALBUM IN/CR EAT RATIO , RANDO M UR creatinine, urine 66.1 mg/dL notest ab. Not Available [facility] ([facility]) [address] [place], [address], 05/27/2024 15:11:31 05/22/2005/23/2024 ALBUM IN/CR EAT RATIO , RANDO M UR albumin, urine <3.0 ug/mL notest ab. Not Available [facility] ([facility]) [address] [place], [address], 05/27/2024 15:11:31 05/22/2005/23/2024 ALBUM IN/CR EAT RATIO , RANDO M UR alb/creat ratio <5 Cecilia l: 0 - 29 Moder ately incre ased: 30 - 300 Sever sebas incre ased: >300 Not Available [facility] ([facility]) [address] [place], [address], 05/27/2024 15:11:31 05/22/2005/23/2024 TSH REFLE X TO T4F TSH 0.708 uIU/m L 0.450- 4.500 Not Available [facility] ([facility]) [address] [place], [address], 05/27/2024 15:11:32 10/25/20 24 05/23/2024 MICRO SCOPI C EXAMI NATIO N WBC 0-5 /hpf 0-5 Not Available [facility] ([facility]) [address] [facility], [place], [address], 05/27/2024 15:11:33 05/22/20 24 05/23/2024 MICRO SCOPI C EXAMI NATIO N RBC None seen /hpf 0-2 Not Available [facility] ([facility]) [address] [facility], [place], [address], 05/27/2024 15:11:33 05/22/2005/23/2024 MICRO SCOPI C EXAMI NATIO N epithelial cells (non renal) 0-10 /hpf 0-10 Not Available [facility] ([facility]) [address] [facility], [place], [address], 05/27/2024 15:11:33 05/22/2005/23/2024 MICRO SCOPI C EXAMI NATIO N casts None seen /lpf nonese en Not Available [facility] ([facility]) [address] [facility], [place], [address], 05/27/2024 15:11:33 05/22/20 24 05/23/2024 MICRO SCOPI C EXAMI NATIO N bacteria Few nonese en/few Not Available [facility] ([facility]) [address] [facility], [place], [address], 05/27/2024 15:11:33 05/22/2005/23/2024 UA WITH CULTU RE REFLE X specific gravity 1.014 1.005- 1.030 Not Available [facility] ([facility]) [address] [facility], [place], [address], 05/27/2024 15:11:34 05/22/2005/23/2024 UA WITH CULTU RE REFLE X pH 6.5 5.0-7. 5 Not Available [facility] ([facility]) [address] [facility], [place], [address], 05/27/2024 15:11:34 05/22/20 24 05/23/2024 UA WITH CULTU RE REFLE X urine-color YELLOW yellow Not Available [facility] ([facility]) [address] [facility], [place], [address], 05/27/2024 15:11:34 05/22/20 24 05/23/2024 UA WITH CULTU RE REFLE X appearance CLEAR clear Not Available [facility] ([facility]) [address] [facility], [place], [address], 05/27/2024 15:11:34 05/22/2005/23/2024 UA WITH CULTU RE REFLE X WBC esterase TRACE negati ve abnormal Not Available [facility] ([facility]) [address] [facility], [place], [address], 05/27/2024 15:11:34 05/22/20 24 05/23/2024 UA WITH CULTU RE REFLE X protein NEGATI VE negati ve/tra ce Not Available [facility] ([facility]) [address] [facility], [place], [address], 05/27/2024 15:11:34 05/22/20 24 05/23/2024 UA WITH CULTU RE REFLE X glucose NEGATI VE negati ve Not Available [facility] ([facility]) [address] [facility], [place], [address], 05/27/2024 15:11:34 05/22/20 24 05/23/2024 UA WITH CULTU RE REFLE X ketones NEGATI VE negati ve Not Available [facility] ([facility]) [address] [facility], [place], [address], 05/27/2024 15:11:34 05/22/20 24 05/23/2024 UA WITH CULTU RE REFLE X occult blood NEGATI VE negati ve Not Available [facility] ([facility]) [address] [facility], [place], [address], 05/27/2024 15:11:34 05/22/20 24 05/23/2024 UA WITH CULTU RE REFLE X bilirubin NEGATI VE negati ve Not Available [facility] ([facility]) [address] [facility], [place], [address], 05/27/2024 15:11:34 05/22/2005/23/2024 UA WITH CULTU RE REFLE X urobilinogen ,semi-qn 0.2 mg/dL 0.2-1. 0 Not Available [facility] ([facility]) [address] [facility], [place], [address], 05/27/2024 15:11:34 05/22/20 24 05/23/2024 UA WITH CULTU RE REFLE X nitrite, urine NEGATI VE negati ve Not Available [facility] ([facility]) [address] [facility], [place], [address], 05/27/2024 15:11:34 05/22/2005/23/2024 UA WITH CULTU RE REFLE X microscopic examination SEE BELOW: Micro scopi c was indic ated and was perfo rmed. Not Available [facility] ([facility]) [address] [facility], [place], [address], 05/27/2024 15:11:34 05/22/2005/23/2024 UA WITH CULTU RE REFLE X urinalysis reflex COMMEN T This speci men has refle xed to a Urine Cultu re. Not Available [facility] ([facility]) [address] [facility], [place], [address], 05/27/2024 15:11:34 05/22/20 24 05/27/2024 URINE CULTU RE, ROUTI NE urine culture, routine Final report abnormal Not Available [facility] ([facility]) [address] [place], [address], 05/27/2024 15:11:35 05/22/20 24 05/27/2024 URINE CULTU RE, ROUTI NE result 1 Escher ichia coli abnormal Cefaz sharon <=4 ug/mL Cefaz sharon with an JESSY <=16 predi cts susce ptibi lity to the oral agent s cefac helena, cefdi velma, cefpo doxim e, cefpr ozil, cefur oxime , cepha lexin , and lorac arbef when used for thera py of uncom plica raj urina ry tract infec tions due to E. coli, Klebs iella pneum oniae , and Prote us mirab ilis. 25,00 0-50, 000 colon y formi ng units per mL Not Available [facility] ([facility]) [address] [place], [address], 05/27/2024 15:11:35 05/22/20 24 05/27/2024 URINE CULTU RE, ROUTI NE result 2 Commen t Mixed uroge nital sahil 25,00 0-50, 000 colon y formi ng units per mL Not Available [facility] ([facility]) [address] [place], [address], 05/27/2024 15:11:35 05/22/20 24 05/27/2024 URINE CULTU RE, ROUTI NE antimicrobia l susceptibili ty Commen t S = Susce ptibl e; I = Inter media te; R = Resis tant P = Posit christiano; N = Negat christiano MICS are expre ssed in micro grams per mL Antib iotic RSLT# 1 RSLT# 2 RSLT# 3 RSLT# 4 Amoxi cilli n/Cla vulan ic Acid S Ampic illin S Ceftr iaxon e S Cefur oxime S Cipro floxa dora S Ertap enem S Genta micin S Imipe nem S Levof loxac in S Merop enem S Nitro furan toin S Tetra cycli ne S Tobra mycin S Trime thopr im/Jimenez lfa S Not Available [facility] ([facility]) [address] [facility], [place], [address], 05/27/2024 15:11:35 05/22/20 24 05/23/2024 VITAM IN D, 25-HY DROXY vitamin D, 25-hydroxy 33.9 NG/mL 30.0-1 00.0 Vitam in D defic iency has been defin ed by the Insti tute of Medic ine and an Endoc rine Socie ty pract ice guide line as a level of serum 25-OH vitam in D less than 20 ng/mL (1,2) . The Endoc rine Socie ty went on to furth er defin e vitam in D insuf ficie ncy as a level betwe en 21 and 29 ng/mL (2). 1. IOM (Inst itute of Medic ine). 2009. Rodolfo ry refer ence intak es for calci um and D. Farhana young [place]: The [facility] . 2. Uriel louis [place], Carol saenz [place], Raj off-F errar i [place], et al. Evalu ation , treat ment, and preve ntion of vitam in D defic iency : an Endoc rine Socie ty clini jimmy pract ice guide line. JCEM. 2010; 96(7) :1911 -30. Not Available [facility] ([facility]) [address] [facility], [place], [address], 05/27/2024 15:11:36 02/06/20 23 02/05/2023 XR, hip, unila teral , 2 or 3 view No observ ation record ed. [facility] [address] [facility], [place], [address], 02/08/2023 10:38:26 Result Notes None recorded. Problems Name Problem SNOMED Code Status Onset Date Resolution Date Notes Provider Name and Address Organization Details Recorded Time Type 2 diabetes mellitus without complicati on 677493136 Active 2016 Not Available [facility] 3 02:27:20 Anxiety 52519489 Active 2016 Not Available [facility] 3 02:27:20 Disorder of lipid metabolism 649501588 Active 2016 Not Available [facility] 3 02:27:20 Nicotine dependence 71358000 Active 2016 Not Available [facility] 3 02:27:20 Mammogram declined 304801506 Active 2017 Not Available [facility] 3 02:27:20 Colonoscop y declined 6078356018344 00 Active 2017 Not Available [facility] 3 02:27:20 Menopause present 461742169 Active 2018 Not Available [facility] 3 02:27:20 Blood pressure procedure declined 895086351 Active 2018 Not Available [facility] 3 02:27:20 Influenza vaccinatio n declined 791622786 Active 2018 Not Available [facility] 3 02:27:20 Screening plain X-ray of chest declined 794466579 Active 2021 Not Available [facility] 3 02:27:20 Breast cancer screening declined 4514715410902 9103 Active 2022 Not Available [facility] 3 02:27:20 SARS-CoV-2 antigen vaccine declined 9010583811 Active 2022 Not Available [facility] 3 02:27:20 SARS-CoV-2 mRNA vaccine declined 6319672469 Active 2023 Joni Sewell MD Attn: [place], [address] , [facility] 4 10:21:59 Uncontroll ed type 2 diabetes mellitus 876082113 Active Not Available [facility] 3 02:27:20 Benign essential hypertensi on 6661602 Active Not Available [facility] 3 02:27:20 Blood in urine 70601704 Active Not Available [facility] 3 02:27:20 Hyperlipid emia 51846237 Active Not Available [facility] 3 02:27:20 Tobacco dependence syndrome 56078122 Active Not Available [facility] 3 02:27:20 Vitamin D deficiency 52146562 Active Not Available [facility] 3 02:27:20 Generalize d anxiety disorder 88484067 Active Not Available [facility] 3 02:27:20 Benign hypertensi on 72054072 Active Not Available [facility] 3 02:27:20 Tobacco dependence , continuous 148396060 Active Not Available [facility] 3 02:27:20 Tinea pedis 3237014 Active Not Available [facility] 3 02:27:20 Problem Notes None recorded. Procedures Surgical History Date Name Laterality Status Provider Name and Address Organization Details Recorded Time 4 Diabetic Foot Exam completed Joni Sewell MD Attn: Accounting,[address] [facility], [place], [address], [facility] 05/22/2024 10:20:17 dilatation and curettage: routine completed Joni Sewell MD Attn: Accounting,[address] [facility], [place], [address], [facility] 05/30/2023 09:40:26 cataract surgery completed Cheryl Massey [place] 05/22/2024 09:36:17 Breast Surgery completed Joni Sewell MD Attn: Accounting,[address] [facility], [place], [address], [place] - [facility] 07/28/2015 10:53:28 Imaging Results Imaging Date Name Status LastModified by Organiz ation Details LastModified Time 02/05/2023 XR, hip, unilateral , 2 or 3 view completed [facility] [address], [place], [address], 02/08/2023 10:38:26 Procedure Notes None recorded. Medical Equipment None Reported. Allergies No known drug allergies Medications Name Sig Start Date Stop Date Status Note LastModified by Organization Details LastModified Time atorvastati n 40 mg tablet TAKE 1 TABLET BY MOUTH EVERY DAY FOR HIGH CHOLESTER OL active Not Available Not Available No t Available terbinafine HCl 1 % topical cream APPLY TOPICALLY TO THE AFFECTED AREA TWICE DAILY DIRECTED active Not Available Not Available No t Available fluconazole 150 mg tablet TAKE 1 TABLET BY MOUTH ONCE A WEEK active Not Available Not Available No t Available hydrocodone 5 mg-acetamin ophen 325 mg tablet TAKE 1 TABLET BY MOUTH EVERY 6 HOURS NEEDED 09/08 completed Not Available Not Available Not Available metronidazo le 500 mg tablet TAKE 1 TABLET BY MOUTH TWICE DAILY FOR 7 DAYS DIRECTED 05/30 completed Not Available Not Available Not Available chlorthalid one 25 mg tablet TAKE 1 TABLET BY MOUTH EVERY DAY. FOLLOW UP 2023 active Not Available Not Available Not Avai lable sulfamethox azole 800 mg-trimetho prim 160 mg tablet TAKE 1 TABLET BY MOUTH EVERY 12 HOURS FOR 3 DAYS DIRECTED FOR UTI active Not Available Not Available No t Available aspirin 81 mg tablet,jono yed release TAKE 1 TABLET BY MOUTH EVERY DAY DIRECTED active Not Available Not Available No t Available Deep Sea Nasal 0.65 % spray aerosol SPRAY 1 TO 2 TIMES IN EACH NOSTRIL EVERY 4 TO 6 HOURS NEEDED 05/22 completed Not Available Not Available Not Available potassium chloride ER 20 mEq tablet,exte nded release(par t/cryst) TAKE 1 TABLET BY MOUTH EVERY DAY DIRECTED active Not Available Not Available No t Available prednisolon e acetate 1 % eye drops,suspe nsion 05/22 completed Not Available Not Available Not Available Klonopin 0.5 mg tablet Take 1 tablet every day by oral route as needed for 7 days. 05/29 completed Not Available Not Available Not Available ciprofloxac in 0.3 % eye drops 05/22 completed Not Available Not Available Not Available amlodipine 10 mg tablet TAKE 1 TABLET BY MOUTH EVERY DAY 2023 active Not Available Not Available Not Avai lable diclofenac 0.1 % eye drops 05/22 completed Not Available Not Available Not Available lisinopril 10 mg tablet TAKE 1 TABLET BY MOUTH EVERY DAY 2023 active Not Available Not Available Not Avai lable buspirone 7.5 mg tablet TAKE 1 TABLET BY MOUTH TWICE DAILY DIRECTED 12/28 completed Not Available Not Available Not Available ketorolac 60 mg/2 mL intramuscul ar solution Inject 1 mL every day by intramusc ular route as directed for 1 day. 2023 active Not Available Not Available Not Avai lable fluticasone propionate 50 mcg/actuati on nasal spray,suspe nsion SHAKE LIQUID AND USE 2 SPRAYS IN EACH NOSTRIL EVERY DAY 2023 active Not Available Not Available Not Avai lable ipratropium bromide 21 mcg (0.03 %) nasal spray USE 2 SPRAYS IN EACH NOSTRIL TWICE DAILY NEEDED 12/28 completed Not Available Not Available Not Available amoxicillin 875 mg-potassiu m clavulanate 125 mg tablet TAKE 1 TABLET BY MOUTH TWICE DAILY FOR 7 DAYS 05/30 completed Not Available Not Available Not Available Caduet 10 mg-40 mg tablet TAKE 1 TABLET BY MOUTH EVERY DAY 04/13 completed Not Available Not Available Not Available potassium chloride ER 20 mEq tablet,exte nded release Take 1 tablet every day by oral route as directed for 30 days. 06/07 completed Not Available Not Available Not Available Vitals Date Recorded Body height Provider Name an d Address Organization Details Last Updated DateTime 09/08/2021 157.48 cm Cheryl Massey MA [facility] 09:59:46 Date Recorded Body mass index (BMI) Body weight Provider Name and Address Organization Details Last Updated DateTime 09/08/2021 39.9 kg/m2 09217.14 g Cheryl Massey MA [facility] 09/08/2021 10:00:47 Date Recorded Heart rate Provider Name an d Address Organization Details Last Updated DateTime 09/08/2021 110 /min Cheryl Massey MA [facility] 022 10:04:02 Date Recorded Oxygen saturation Oxygen saturation in Arterial blood by Pulse oximetry Provider Name and Address Organization Details Last Updated DateTime 09/08/2021 100 % 100 % Cheryl Massey MA [facility] 09/08/2021 10:04:04 Date Recorded Respiratory rate Provider Name a nd Address Organization Details Last Updated DateTime 09/08/2021 16 /min Cheryl Massey MA [facility] 022 10:04:06 Date Recorded Body height Provider Name an d Address Organization Details Last Updated DateTime 12/28/2022 157.48 cm Cheryl BrysonTREY green [facility] 023 09:28:52 Date Recorded Body mass index (BMI) Body weight Provider Name and Address Organization Details Last Updated DateTime 12/28/2022 40.6 kg/m2 306300.51 g Cheryl Massey MA [facility] 12/28/2022 09:28:56 Date Recorded Heart rate Provider Name an d Address Organization Details Last Updated DateTime 12/28/2022 114 /min Cheryl MarthaTREY green [facility] 023 09:39:46 Date Recorded Oxygen saturation Oxygen saturation in Arterial blood by Pulse oximetry Provider Name and Address Organization Details Last Updated DateTime 12/28/2022 99 % 99 % Cheryl Massey MA [facility] 12/28/2022 09:39:49 Date Recorded Respiratory rate Provider Name a nd Address Organization Details Last Updated DateTime 12/28/2022 16 /min Cheryl MarthaTREY green [facility] 023 09:39:52 Date Recorded Body height Provider Name an d Address Organization Details Last Updated DateTime 02/08/2023 157.48 cm Cheryl Massey MA [facility] 023 10:27:00 Date Recorded Body mass index (BMI) Body weight Provider Name and Address Organization Details Last Updated DateTime 02/08/2023 41.3 kg/m2 851684.88 g Cheryl Massey MA [facility] 02/08/2023 10:27:03 Date Recorded Heart rate Provider Name an d Address Organization Details Last Updated DateTime 02/08/2023 84 /min Cheryl Martha, [facility] 023 10:30:02 Date Recorded Oxygen saturation Oxygen saturation in Arterial blood by Pulse oximetry Provider Name and Address Organization Details Last Updated DateTime 02/08/2023 98 % 98 % Cheryl BrysonTREY green [facility] 02/08/2023 10:30:04 Date Recorded Respiratory rate Provider Name a nd Address Organization Details Last Updated DateTime 02/08/2023 18 /min Cheryl BrysonTREY green [facility] 023 10:30:06 Date Recorded Body height Provider Name an d Address Organization Details Last Updated DateTime 05/30/2023 157.48 cm Marisela Bailon TREY [facility] 09:23:06 Date Recorded Body mass index (BMI) Body weight Provider Name and Address Organization Details Last Updated DateTime 05/30/2023 41.5 kg/m2 283215.47 g Marisela BailonTREY [facility] 05/30/2023 09:23:10 Date Recorded Body temperature Provider Name a nd Address Organization Details Last Updated DateTime 05/30/2023 98.1 [degF] Marisela Bailon MA [facility] 05/30/20 09:23:21 Date Recorded Oxygen saturation Oxygen saturation in Arterial blood by Pulse oximetry Provider Name and Address Organization Details Last Updated DateTime 05/30/2023 98 % 98 % Marisela Bailon MA [facility] 05/30/2023 09:24:31 Date Recorded Heart rate Provider Name an d Address Organization Details Last Updated DateTime 05/30/2023 85 /min Marisela Bailon TREY [facility] 09:24:35 Date Recorded Body height Provider Name an d Address Organization Details Last Updated DateTime 05/22/2024 157.48 cm Cheryl Massey MA [facility] 024 09:29:17 Date Recorded Body mass index (BMI) Body weight Provider Name and Address Organization Details Last Updated DateTime 05/22/2024 41.1 kg/m2 947602.49 juju Cheryl Massey MA [facility] 05/22/2024 09:37:35 Date Recorded Heart rate Provider Name an d Address Organization Details Last Updated DateTime 05/22/2024 118 /min Cheryl Massey MA [facility] 09:39:45 Date Recorded Oxygen saturation Oxygen saturation in Arterial blood by Pulse oximetry Provider Name and Address Organization Details Last Updated DateTime 05/22/2024 99 % 99 % Cheryl Massey MA [facility] 05/22/2024 09:39:46 Date Recorded Respiratory rate Provider Name a nd Address Organization Details Last Updated DateTime 05/22/2024 16 /min Cheryl Massey MA [facility] 024 09:39:47 Date Recorded Systolic blood pressure Diastolic blood pressure Provider Name and Address Organization Details Last Updated DateTime 09/08/2021 140 mm[Hg] 66 mm[Hg] Cheryl Massey MA [facility] 09/08/2021 10:27:04 Date Recorded Systolic blood pressure Diastolic blood pressure Provider Name and Address Organization Details Last Updated DateTime 12/28/2022 144 mm[Hg] 66 mm[Hg] Cheryl Massey MA [facility] 12/28/2022 09:39:44 Date Recorded Systolic blood pressure Diastolic blood pressure Provider Name and Address Organization Details Last Updated DateTime 02/08/2023 134 mm[Hg] 60 mm[Hg] Cheryl Massey MA [facility] 02/08/2023 10:36:24 Date Recorded Systolic blood pressure Diastolic blood pressure Provider Name and Address Organization Details Last Updated DateTime 05/30/2023 130 mm[Hg] 60 mm[Hg] Cheryl Massey MA [facility] 05/30/2023 09:27:56 Date Recorded Systolic blood pressure Diastolic blood pressure Provider Name and Address Organization Details Last Updated DateTime 05/22/2024 136 mm[Hg] 58 mm[Hg] Cheryl Massey MA [facility] 05/22/2024 09:39:34 Date Recorded Systolic blood pressure Diastolic blood pressure Provider Name and Address Organization Details Last Updated DateTime 05/22/2024 140 mm[Hg] 70 mm[Hg] Joni Sewell MD Attn: Accounting[address] [place], [address], [place] [facility] [place] 05/22/2024 10:05:38 Social History Question Answer Notes LastModified by Organizat ion Details LastModified Time Tobacco Smoking Status Current Every Day Smoker October T[place]Y [place], [place] [facility] 07/28/2015 10:35:04 Do You Have An Advance Directive? No Information not available 07/28/2015 What Is Your Level Of Alcohol Consumption? Moderate Information not available 07/28/2015 How Many Years Have You Consumed Alcohol? 40 Information not available 05/22/2024 What Is Your Level Of Caffeine Consumption? Moderate Information not available 07/28/2015 How Much Tobacco Do You Chew? None Information not available 07/28/2015 Do You Or Have You Ever Used E-cigarettes Or Vape? Never Used Electronic Cigarettes Information not available 05/29/2019 Education 12 Information no t available 07/28/2015 What Is Your Occupation? [email or web address] Information not available 05/22/2024 Are There Any Guns Present In Your Home? No Information not available 07/28/2015 Hard Of Hearing Or Deaf In One Or Both Ears? No Information not available 07/28/2015 Legally Blind In One Or Both Eyes? No Information not available 07/28/2015 Marital Status Single Informatio n not available 07/28/2015 What Was The Date Of Your Most Recent Tobacco Screening? 05/22/2024 Information not available 05/22/2024 What Is Your Current Pack Years? [email or web address] Information no t available 05/22/2024 Performs Monthly Self-breast Exam? Yes Information not available 07/28/2015 Seat Belts Used Routinely Yes Information not available 07/28/2015 Smoke Alarm In Home Yes Information not available 07/28/2015 At What Age Did You Start Smoking Tobacco? 30 Information not available 05/22/2024 Do You Or Have You Ever Used Smokeless Tobacco? Never Used Smokeless Tobacco Information not available 05/29/2019 How Much Tobacco Do You Smoke? 1 PPD Information not available 07/28/2015 General Stress Level High Information not available 07/28/2015 Do You Use Any Illicit Or Recreational Drugs? No Information not available 05/22/2024 Do You Use Sunscreen Routinely? No Information not available 07/28/2015 Has Tobacco Cessation Counseling Been Provided? Yes Information not available 09/08/2021 On What Date Was Tobacco Cessation Counseling Provided? 05/22/2024 Information not available 05/22/2024 How Many Years Have You Smoked Tobacco? 43 Information not available 05/22/2024 Sex: Unknown Functional Status None recorded. Mental Status None recorded. Family History Relationship Description Onset Age of this Age Resolved Age Notes LastModified by Organization Details LastModified Time Daughter Malignant tumor of breast [email or web address] Not available 2014 13:29:43 Medical History Condition Response Coronary Artery Disease N Other N Atrial Fibrillation N High Blood Pressure Y Kidney or Bladder Problems N Thyroid Problems N GI Problems N Depression Y COPD N Blood Clots N Skin Problems N Anemia N Heart Attack ([place]) N Anxiety Disorder Y Diabetes N Muscle, Joint, or Bone Problems N Seizures/Epilepsy N Acid Reflux (GERD) Y Cancer N Stroke N Asthma N Allergies N High Cholesterol Y Hepatitis N Liver Disease N Headaches N Heart Failure N Osteoporosis N Gynecological HistoryNo gynecological history recorded. Obstetrics History GPAL:G 0 P 0 0 0 0 Immunizations Vaccine Type Date Status Note Provider Nam e and Address Organization Details Recorded Time COVID-19, mRNA, LNP-S, PF, 100 mcg/0.5mL dose or 50 mcg/0.25mL dose 1 completed Not Available [facility] 02/18/2023 02:27:20 COVID-19, mRNA, LNP-S, PF, 100 mcg/0.5mL dose or 50 mcg/0.25mL dose 1 completed Not Available [facility] 02/18/2023 02:27:20 COVID-19, mRNA, LNP-S, PF, 100 mcg/0.5mL dose or 50 mcg/0.25mL dose 1 completed Not Available [facility] 02/18/2023 02:27:20 COVID-19, mRNA, LNP-S, PF, 100 mcg/0.5mL dose or 50 mcg/0.25mL dose 1 completed Not Available [facility] 02/18/2023 02:27:20 Pneumococcal conjugate PCV 13 9 completed Not Available [facility] 02/18/2023 02:27:20 Tdap 8 completed Not Available [facility] 08/15/2019 02:36:25 Influenza, split virus, trivalent, preservative 5 completed Not Available [facility] 08/15/2019 02:40:26 Past Encounters Encounter ID Performer Location Encounter Start Date Encounter Closed Date Diagnosis/Indication Diagnosis SNOMED-CT Code Diagnosis ICD10 Code Diagnosis Note [id number] Joni Sewell MD [facility] (Adult Med) [address] [place] [phone] 07/28/2015 09:54:36 07/28/2015 17:00:22 Benign essential hypertension 3071492 I10 Uncontroll ed, she should discontinu e the Caduet due to the cost and start Chlorthali done, Lisinopril and Amlodipine . I have discussed the side effects with her in detail and I have advised her to get her labs done serially as it is important to monitor her electrolyt es. Low salt diet Labs in 4 weeks RN BP check in 4 weeks Follow up in 3 months Uncontroll ed type 2 diabetes mellitus 599931486 E11.65 DIet controlled Blood in urine 64515323 R31.9 Active or passive immunization 974889199 Z23 Hyperlipidemia 47652458 E78.5 Screening for malignant neoplasm of colon 701713139 Z12.11 She has refused I am alright Tobacco de pendence syndrome 34595795 F17.290 Vitamin D deficiency 347 46980 E55.9 Generalize d anxiety disorder 03787052 F41.1 Screening for cancer 158 77360 Z12.9 She has once again refused. This is a very touchy subject as she had lost a daugter to breast cancer and in the past when I persisted it resulted in her walking out in tears. [id number] Joni Sewell MD [facility] (Adult Med) [address] [place] [address] [phone] 0 04/13/2016 15:10:40 04/13/2016 16:37:39 Noncompliance with medication regimen 033843790 Z91.14 I have had no medicine You know I can't come here no every three months Benign hypertension 1072 5009 I10 Uncontroll ed type 2 diabetes mellitus 771050319 E11.65 DIet controlled Immunization refused 275 774488 Z28.21 Cessation was discussed. Tobacco de pendence, continuous 799327049 F17.290 Generalize d anxiety disorder 38203352 F41.1 I don't want nerve pills Tinea pedis 2005278 B35. 3 [id number] Joni Sewell MD [facility] (Adult Med) [address] [place] [address] [phone] 06/07/2017 10:12:24 06/07/2017 12:47:23 Type 2 diabetes mellitus without complication 949772364 E11.9 Her annual eye exam was done and she was diagnosed with a cataract, she also was seen by her toxics program officer , Dr. Ceasar harris. Benign ess ential hypertension 8857222 I10 Anxiety 30450954 F41.9 Disorder o f lipid metabolism 629928105 E78.9 Her cholestero l is optimal. Nicotine dependence 5629 4008 Z87.891 Can I just do an xray She has refused a LDCTCessat ion was discussed Upper resp iratory infection 72400324 J06.9 Most likely viral Screening for malignant neoplasm of colon 135826128 Z12.11 Breast scr eening declined 523199316 Z53.20 She refused a MMG Medication monitoring 39 8493275 Z51.81 Immunization due 6461243 08 Z28.3 Influenza and Pneumovax 23 are both due. Noncomplia nce with medication regimen 093580503 Z91.14 She has not been compliant with her potassium replacemen t Colonoscopy declined 745 3652194 04862 Z53.20 [id number] Joni Sewell MD [facility] (Adult Med) [address] [place] [address] [phone] 04/17/2018 09:54:14 04/18/2018 15:10:33 Type 2 diabetes mellitus without complication 070222876 E11.9 Diet controlled .Her annual eye exam is due, she also was seen by her toxics program officer , Dr. Merlos. Nicotine dependence 5629 4008 Z87.891 She has refused a LDCTCessat ion was discussed Administra tion of pneumococcal vaccine 01926429 Z23 Administra tion of diphtheria, pertussis, and tetanus vaccine 622688185 Z23 Colonoscopy declined 628 7600740 69019 Z53.20 Tachycardia 3965203 R00. 0 Anxiety 43317109 F41.9 Benign ess ential hypertension 1507164 I10 Disorder o f lipid metabolism 154835760 E78.9 Her cholestero l is optimal. Mammogram declined 51107 5004 Z53.20 [id number] MD Stef [facility] (Adult Med) [address] [place] [address] [phone] 0 05/29/2019 09:09:50 06/01/2019 08:51:55 General examination of patient 297169717 Z00.01 Influenza vaccination declined 503850224 Z28.21 Menopause present 014018 006 N95.1 Type 2 keyla betes mellitus without complication 200111949 E11.9 Diet controlled .Her annual eye exam is due, she also should follow up with her toxics program officer , Dr. Merlos. Screening for malignant neoplasm of colon 561776231 Z12.11 Administra tion of pneumococcal vaccine 69559210 Z23 Nicotine dependence 5629 4008 Z87.891 She has refused a LDCTCessat ion was discussed Generalize d anxiety disorder 40752031 F41.1 I don't want nerve pills Screening for malignant neoplasm of breast 870293997 Z12.39 Blood pres sure procedure declined 385810379 Z53.20 Colonoscopy declined 696 1471409 11132 Z53.20 Benign hypertension 1072 5009 I10 [id number] [facility] [address] [place] [address] [phone] 0 07/19/2020 08:15:51 07/20/2020 09:02:09 Nicotine dependence 47005965 Z87.891 She has refused a LDCTCessat ion was discussed Influenza vaccination declined 390341231 Z28.21 Hypokalemia 21735761 E87 .6 Her potassium was low (3.2 06/05/19) , she was restart on KCL, it appears that she has stopped this. The K is most likely due to her Chlorthali done.Cookie azul K. Chronic rhinitis 8711648 6 J31.0 Screening for malignant neoplasm of colon 851366187 Z12.11 General ex amination of patient 324472505 Z00.01 Type 2 keyla betes mellitus without complication 781147779 E11.9 Diet controlled .Her annual eye exam is current, she also should follow up with her toxics program officer , Dr. Merlos. Colonoscopy declined 005 7903621 49246 Z53.20 Vitamin D deficiency 347 90724 E55.9 [id number] MD Stef [facility] (Adult Med) [address] [place] [address] [phone] 0 09/08/2021 09:47:25 09/11/2021 10:46:30 Influenza vaccination declined 619283076 Z28.21 Generalize d anxiety disorder 33578309 F41.1 Benign ess ential hypertension 2992336 I10 Uncontroll ed type 2 diabetes mellitus 335999049 E11.65 DIet controlled Tobacco de pendence syndrome 20918263 F17.290 Mammogram declined 14981 5004 Z53.20 Screening plain X-ray of chest declined 843062964 Z53.20 Screening for malignant neoplasm of colon 121950537 Z12.11 Her sample could not be processed Unexplaine d weight loss 956234471 R63.4 General ex amination of patient 429061752 Z00.01 [id number] MD Ste[facility] (Adult Med) [address] [place] [address] [phone] 0 12/28/2022 09:12:41 12/31/2022 14:08:55 General examination of patient 317823569 Z00.01 Blood in urine 33366722 R31.9 Pneumococc al vaccination declined 834259115 Z28.21 Immunization advised 310 620219 Z71.9 Allergic rhinitis 362315 04 J30.9 Tinea pedis 9053595 B35. 3 Type 2 keyla betes mellitus without complication 191542576 E11.9 Diet controlled .Her annual eye exam is current, she also should follow up with her toxics program officer , Dr. Merlos. Pain in ri ght hip joint 4710068322 42693 M25.551 Colon canc er screening declined 5645670366 9109 Z53.20 SARS-CoV-2 antigen vaccine declined 6461737532 Z28.21 Tachycardia 0180338 R00. 0 Body mass index 40+ - severely obese 281296531 Z68.41 Overweight 365374664 E66 .3 Breast can cer screening declined 6975986848 5870033 Z53.20 [id number] MD Stef Hess (Adult Med) [address] [place] [address] [phone] 0 02/08/2023 10:18:46 02/11/2023 14:07:19 Benign essential hypertension 1893597 I10 Hyperlipidemia 28484276 E78.5 Stable Drug-induc ed hypokalemia 664170762 E87.6 Pain in ri ght hip joint 1140285571 41588 M25.551 Xrays suggest chronic changes and narrowing of the joint space.She would like to try PT Type 2 keyla betes mellitus without complication 533476351 E11.9 Diet controlled , her HBA1C was 6.5.Her annual eye exam is current, she also should follow up with her toxics program officer , Dr. Merlos. [id number] Joni Sewell MD [facility] (Adult Med) [address] [place] [address] [phone] 0 05/30/2023 09:05:21 06/04/2023 09:53:50 Pre-surgery evaluation 245619931 Z01.818 Low risk for complicati ons Type 2 keyla betes mellitus without complication 551928108 E11.9 Diet controlled DM, her HBA1C was 6.5% on 02/05/2023 .Her annual eye exam is current, but we need a note from her ophthalmol ogist Medication monitoring 39 4141077 Z51.81 Benign ess ential hypertension 9197908 I10 Stable Hyperlipidemia 69650033 E78.5 Stable Drug-induc ed hypokalemia 066073972 E87.6 [id number] Joni Sewell MD [facility] (Adult Med) [address] [place] [address] [phone] 0 05/22/2024 09:25:52 05/26/2024 12:55:26 Immunization advised 791642979 Z71.9 Pain in ri ght hip joint 3778505816 36438 M25.551 Xrays suggest chronic changes suggestive of OA Pain of ri ght knee joint 8480099610 26370 M25.561 Chronic back pain 243801 002 G89.29 Tinea pedis 2732683 B35. 3 SARS-CoV-2 mRNA vaccine declined 9914225510 Z28.21 Type 2 keyla betes mellitus without complication 025930789 E11.9 Diet controlled DM, her HBA1C was 6.5% on 02/05/2023 . Overactive urinary bladder 917213261 N32.81 Tachycardia 9513131 R00. 0 Drug-induc ed hypokalemia 561093353 E87.6 History of nicotine dependence 9182651128 30456305 Z87.891 Body mass index 40+ - severely obese 565477234 Z68.41 Obesity 437233633 E66.9 Postmenopausal state 764 65221 Z78.0 Health Concerns Section Related Observation LastModified by Organization Detai ls LastModified Time None Recorded Concern Status LastModified by Organization Details LastModified Time None Recorded Advance Directives Directive N: Payers Encounter Date Sequence Insurance Name Policy Number Policy Burdick Covered Member ID Burdick Member ID Guarantor Name 09/08/2021 1 [employer] (MEDICARE REPLACEMENT/AD VANTAGE - PPO) Sanjuana Silvio Duncan [id number] Petercornell Duncan 09/08/2021 1 [place]ARE OR MEDICARE REPLACEMENT PRIMARY) Petercornell Duncan [id number] Petercornell Duncan 12/28/2022 1 [facility] (MEDICARE REPLACEMENT/AD VANTAGE - HMO) [id number] Petera Silvio Duncan [id number] Petercornell Duncan 12/28/2022 2 [place] OR MEDICARE REPLACEMENT PRIMARY) Petercornell Duncan [id number] Petercornell Duncan 02/08/2023 1 [facility] (MEDICARE REPLACEMENT/AD VANTAGE - HMO) [id number] Sanjuana Silvio Duncan [id number] Petercornell Duncan 02/08/2023 2 [place] WHEN [place] OR MEDICARE REPLACEMENT PRIMARY) Sanjuana [place] [id number] Petercornell Duncan 05/30/2023 1 [facility] (MEDICARE REPLACEMENT/AD VANTAGE - HMO) [id number] Petercornell Duncan [id number] Petercornell Duncan 05/30/2023 2 [place] WHEN [place]ARE OR MEDICARE REPLACEMENT PRIMARY) Petercornell Duncan [id number] Petercornell Duncan 05/22/2024 1 [facility] (MEDICARE REPLACEMENT/AD VANTAGE - HMO) [id number] Petercornell Duncan [id number] Petercornell Duncan 05/22/2024 2 [place] WHEN [place]ARE OR MEDICARE REPLACEMENT PRIMARY) Petercornell Duncan [id number] Petercornell Duncan Notes Date Note Type Note Provider Name and Address Organization Details Recorded Time 09/08/2021 text/html Ms Duncan retur ns, she has been busy with her who had a stroke, she also has changed her diet and on her last visit she had made a promise to herself that she would lose weight. She is doing well and she is not interested in a MMG or the Influenza vaccine Joni Sewell MD Attn: Accounting,[address] [place], [address], [place] [facility] [place] 09/08/2021 23:21:12 12/28/2022 text/html Diabetes F/URepo rted bypatient.Labs:last A1C result: 6.5 Context:taking aspirin daily; not missing doses of medications; no side effects from medications Associated Symptoms:weight gain (4 lbs)Hip(s)Reported bypatient.Location:[facility] Quality:aching Severity:mild Duration:3 months Timing:acute; chronic Context:cannot identify Alleviating Factors:limited weight bearing Aggravating Factors:walking Associated Symptoms:no weakness; no numbness; no tingling; no swelling; no redness; no warmth; no ecchymosis; no catching/locking; no popping/clicking; no buckling; no grinding; no instability; no radiation down leg; no drainage; no fever; no chills; no weight loss; no change in bowel/bladder habits Previous Surgery:none Prior Imaging:none Previous Injections:none Previous PT:none Work Related:no Working:no Just my hip I ain't been here in a long time Joni Sewell MD Attn: Accounting[address] [place], [address], [facility] 12/28/2022 10:54:29 02/08/2023 text/html Diabetes F/URepo rted bypatient.Labs:last A1C result: 6.5 How did it show an infection, as I haven't done anything in 7 years It's the same, but I am walking a little bit better Ms Walter cannot fathom how come Tichomonads were noted in her urine test, she is asymptomatic and she has not been sexually active. Her right sided hip and RLE radicular pain persist but she is walking better. Joni Sewell MD Attn: Accounting,[address] [facility], [place], [address], [facility] 02/08/2023 11:04:11 05/30/2023 text/html Diabetes F/URepo rted bypatient.Labs:last A1C result: 6.5Hypertension F/UReported bypatient.Associated Symptoms:no dizziness; no lightheadedness; no chest pain; no shortness of breath; no palpitations; no edema; no calf pain with exertion Lifestyle:regular exercise; limiting/avoiding salt Medications:taking medications as directed; no side effects from medication Ms Duncan is doing well, she is scheduled for cataract surgery. She denies any chest pain or SOB and can walk up a flight of stairs with some difficulty due to hip pain. Joni Sewell MD Attn: Accounting,[address] [facility], [place], [address], [facility] 05/30/2023 09:53:34 05/22/2024 text/html Diabetes F/URepo rted bypatient.Labs:last A1C result: 6.5% Context:taking aspirin daily; not missing doses of medications; no side effects from medications Associated Symptoms:no weight gain; no dizziness; no sweats; no headaches; no confusion; no increased thirst; no increased appetite; no increased urination; no blurred vision; no numbness of feet; no calluses on feet;weight loss (3 lbs)Hip(s)Reported bypatient.Location:[facility] Quality:aching Severity:severe Duration:years Timing:chronic Context:cannot identify Alleviating Factors:nothing helps Aggravating Factors:walking; ROM; weightbearing Associated Symptoms:no weakness; no numbness; no tingling; no swelling; no redness; no warmth; no ecchymosis; no catching/locking; no popping/clicking; no buckling; no grinding; no instability; no radiation down leg; no drainage; no fever; no chills; no weight loss; no change in bowel/bladder habits Previous Surgery:none Prior Imaging:x ray Previous Injections:none Previous PT:none Work Related:no Working:modified dutyKneeReported bypatient.Location:[facility] Quality:aching Severity:mild Duration:years Timing:chronic Context:cannot identify Alleviating Factors:nothing helps Aggravating Factors:walking; ROM Associated Symptoms:no weakness; no numbness; no tingling; no swelling; no redness; no warmth; no ecchymosis; no catching/locking; no popping/clicking; no buckling; no grinding; no instability; no radiation down leg; no drainage; no fever; no chills; no weight loss; no change in bowel/bladder habits Previous Surgery:none Prior Imaging:none Previous Injections:none Previous PT:none Work Related:no Working:modified dutyMedicare Annual Wellness VisitReported bypatient.Diet and Nutrition:discussed vitamin and supplement use; discussed diet improvement Fracture Risk:no history of fractures; no recent explained fracture; no sudden unexplained fractures;previous musculoskeletal injuries Physical Activity:exercises on a regular basis; recent increase in physical activity; good physical condition; discussed exercise habits Depression Risk:never feels sad, empty, or tearful; no loss of interest in activities; no significant changes in weight; no sleep disturbances or insomnia; no agitation; no loss of energy; no feelings of worthlessness or guilt; no thoughts of suicide; no history of depression;history of mood disorders Orientation:no disorientation to time; no disorientation to date; no disorientation to place Concentration and Memory:no decreased concentrating ability; no memory lapses or loss; does not forget words Speech/Motor difficulties:no speech difficulties; no difficulty expressing formulated concepts; no difficulty with fine manipulative tasks; no difficulty writing/copying; no slowed reaction time; does not knock things over when trying to pick them up Hearing:no loss of hearing Vision:worse both distance and near Activities of Daily Living:able to bathe with limited or no assistance; able to contol urination and bowels; able to dress with limited or no assistance; able to feed self with limited or no assistance; able to get out of chair or bed with limited or no assistance; able to groom with limited or no assistance; able to toilet with limited or no assistance Instrumental Activities of Daily Living:able to grocery shop with limited or no assistance; able to manage medications with limited or no assistance; able to manage money with limited or no assistance; able to prepare meals with limited or no assistance; able to use the phone with limited or no assistance;unable to do house work without assistance Falls Risk Assessment:no frequent falls while walking; no fall in the past year; no fall since last visit; no dizziness/vertigo Home Safety:no unsafe vibha hazzards; no unsafe stairs; no unsafe gas appliances; working smoke/CO detectors; wears protective head gear for biking/high velocity; use of seatbelts; no vision or hearing loss while driving; has hand bars in the bathroom/shower; good lighting in the home My hip Cause I am scared What type of Diabetes, I have? I have been trying to take a 8 hour arthritis pill I go to the bathroom a lot, sometimes I can't make it Ms Duncan returns, she is doing well but continues to have right sided lower back, hip and knee pain. She is also having urinary frequency and at times she is incontinent. She was seen by the toxics program officer but she would like to see someone else. As usual, she is anxious and she feels that should explain her tachycardia. Joni Sewell MD Attn: Accounting,[address] [facility], [place], [address], [facility] 05/22/2024 14:01:37 OBGyn Episode No OBEpisode recorded.
== END 2024-08-26 13:38 | disposition home or self-care (01) ==
PROVIDERS: Visit Provider Physician Assistant Surgical
DX: M16.10 Unilateral primary osteoarthritis, unspecified hip (principal)
CPT/HCPCS: 20611; J1010; J2003